=== PATIENT | female | born 1965 | race Caucasian/White ===

== ENCOUNTER 2021-04-23 22:12 | Inpatient (IN) | payer BC ==
[2021-04-23 23:39] LABS: #Eosinphils 0.1 thou/uL (0.0-0.7); #Lymphocytes 2.6 thou/uL (1.20-3.40); #Monocytes 0.6 thou/uL (0.11-0.59); #Neutrophils 4.9 thou/uL (1.40-6.50); %Basophils 0.4 % (0.0-1.0); %Eosinophils 1.6 % (0.0-10.0); %Lymphocytes 31.7 % (21.0-51.0); %Monocytes 6.7 % (0.0-10.0); %Neutrophils 59.6 % (42.0-75.0); Hemoglobin 12.6 g/dL (12.0-16.0); Mean Corpuscular Volume 88.3 fL (78.0-98.0); Mean Platelet Volume 5.7 fL (7.4-10.4); Platelet Count 488 thou/uL (130-400); RBC Distribution Width 11.5 % (11.5-14.5); Red Blood Cell (RBC) Count 4.19 mill/uL (4.20-5.40); White Blood Cell (WBC) Count 8.3 thou/uL (4.8-10.8)
[2021-04-23] MEDS ORDERED: Piperacillin/Tazobactam 3.375 GM VIAL ONE (23:50)
[2021-04-23] MEDS ORDERED: Morphine 4 MG/ML VIAL ONE (23:50)
[2021-04-24 00:02] LABS: ALT (SGPT) 9 U/L (8-55); AST (SGOT) 8 U/L (5-34); Albumin 3.5 g/dL (3.5-5.0); Alkaline Phosphatase 81 U/L (40-110); Anion Gap 11 mmol/L (10-20); BUN (Urea Nitrogen) 11 mg/dL (9.8-20.1); Bilirubin, Total 0.6 mg/dL (0.2-1.2); Calc. Creatinine Clearance 0 mL/min (70-130); Calcium 9.6 mg/dL (7.8-10.44); Carbon Dioxide 26 mmol/L (22-29); Chloride 99 mmol/L (98-107); Globulin 3.4 g/dL (2.4-3.5); Glucose 193 mg/dL (70-105); Potassium 3.6 mmol/L (3.5-5.1); Protein, Total 6.9 g/dL (6.0-8.3); Sodium 132 mmol/L (136-145)
[2021-04-24 01:41] VITALS: BMI 29.6
[2021-04-24] MEDS ORDERED: Vancomycin 1 GM in Premix Bag 1 BAG IVPB SCH (04:00)
[2021-04-24] MEDS ORDERED: Piperacillin/Tazobactam 3.375 GM in Sodium Chloride 0.9% 100 ML IVPB SCH (04:00)
[2021-04-24] MEDS ORDERED: Sodium Chloride 0.9% 1,000 ML IV SCH (04:00)
[2021-04-24] MEDS: Morphine 4 MG/ML VIAL SLOW IVP PRN ×2 (05:39→08:38)
[2021-04-24] MEDS ORDERED: hydrALAZINE 20 MG/ML VIAL SLOW IVP PRN (08:57)
[2021-04-24] MEDS ORDERED: Ondansetron PF 4 MG/2 ML Vial IVP PRN (08:57)
[2021-04-24] MEDS ORDERED: Ondansetron ODT 4 MG TAB PO PRN (08:57)
[2021-04-24] MEDS ORDERED: Dextrose 5% in Water 1,000 ML IV PRN (08:57)
[2021-04-24] MEDS ORDERED: Dextrose 50% Abboject 50 ML SYRINGE SLOW IVP PRN (08:57)
[2021-04-24] MEDS: Famotidine 20 MG TAB PO SCH ×2 (09:56→20:03)
[2021-04-24] MEDS ORDERED: Vancomycin HCl 1 GM in Sodium Chloride 0.9% 250 ML 250 ML IVPB SCH (11:00)
[2021-04-24] MEDS: Sodium Chloride 0.9% 1,000 ML IV SCH ×2 (11:22→19:00)
[2021-04-24] MEDS: Vancomycin 1 GM in Premix Bag 1 BAG IVPB SCH ×2 (11:28→22:36)
[2021-04-24] MEDS: Acetaminophen 500 MG TAB PO PRN ×2 (11:28→18:11)
[2021-04-24] MEDS: HumaLOG 300 UNITS/3 ML VIAL SC PRN ×3 (11:46→21:39)
[2021-04-24] MEDS: Piperacillin/Tazobactam 3.375 GM in Sodium Chloride 0.9% 100 ML IVPB SCH ×2 (15:29→23:48)
[2021-04-25] MEDS: Acetaminophen 500 MG TAB PO PRN ×3 (03:08→16:13)
[2021-04-25 05:53] LABS: #Basophils 0.1 thou/uL (0.0-0.2); #Eosinphils 0.2 thou/uL (0.0-0.7); #Monocytes 0.8 thou/uL (0.11-0.59); #Neutrophils 6.7 thou/uL (1.40-6.50); %Basophils 0.6 % (0.0-1.0); %Eosinophils 1.9 % (0.0-10.0); %Lymphocytes 20.5 % (21.0-51.0); %Monocytes 8.2 % (0.0-10.0); %Neutrophils 68.8 % (42.0-75.0); Hemoglobin 12.9 g/dL (12.0-16.0); Mean Corpuscular HGB CONC 33.2 g/dL (32.0-36.0); Mean Corpuscular Hemoglobin 29.4 pg (27.0-31.0); Mean Corpuscular Volume 88.7 fL (78.0-98.0); Mean Platelet Volume 5.8 fL (7.4-10.4); Platelet Count 497 thou/uL (130-400); RBC Distribution Width 11.3 % (11.5-14.5); Red Blood Cell (RBC) Count 4.38 mill/uL (4.20-5.40); White Blood Cell (WBC) Count 9.8 thou/uL (4.8-10.8)
[2021-04-25] MEDS: HumaLOG 300 UNITS/3 ML VIAL SC PRN ×2 (05:57→21:55)
[2021-04-25 05:59] LABS: Hemoglobin A1c 9.1 % (4.0-6.0)
[2021-04-25 05:59] LABS: SARS-CoV-2 NAA Rapid Test Not Detected (NotDetected)
[2021-04-25] MEDS: Sodium Chloride 0.9% 1,000 ML IV SCH ×2 (05:59→16:03)
[2021-04-25 06:22] LABS: Anion Gap 13 mmol/L (10-20); BUN (Urea Nitrogen) 10 mg/dL (9.8-20.1); Calc. Creatinine Clearance 116 mL/min (70-130); Calcium 9.6 mg/dL (7.8-10.44); Carbon Dioxide 24 mmol/L (22-29); Chloride 102 mmol/L (98-107); Glucose 251 mg/dL (70-105); Potassium 3.8 mmol/L (3.5-5.1); Sodium 135 mmol/L (136-145)
[2021-04-25] MEDS: Famotidine 20 MG TAB PO SCH ×2 (09:09→19:57)
[2021-04-25] MEDS: Piperacillin/Tazobactam 3.375 GM in Sodium Chloride 0.9% 100 ML IVPB SCH ×3 (09:09→23:35)
[2021-04-25 10:38] LABS: Vancomycin, Trough 12.7 ug/mL
[2021-04-25] MEDS: Vancomycin 1 GM in Premix Bag 1 BAG IVPB SCH ×3 (11:22→22:08)
[2021-04-25] MEDS ORDERED: Vancomycin 1 GM/200 ML BAG ONE (11:37)
[2021-04-25] MEDS ORDERED: Sodium Chloride 0.9% 100 ML ONE (14:09)
[2021-04-25] MEDS ORDERED: Piperacillin/Tazobactam 3.375 GM VIAL ONE (14:09)
[2021-04-25] MEDS ORDERED: Ondansetron PF 4 MG/2 ML Vial ONE (14:34)
[2021-04-25] MEDS ORDERED: Lidocaine 1% PF 5 ML VIAL ONE (14:34)
[2021-04-25] MEDS ORDERED: Dexamethasone 20 MG/5 ML VIAL ONE (14:34)
[2021-04-25] MEDS ORDERED: PROPOFOL 200 MG/20 ML VIAL ONE (14:34)
[2021-04-25] MEDS ORDERED: ePHEDrine 50 MG/ML VIAL ONE (14:34)
[2021-04-25] MEDS ORDERED: Fentanyl 100 MCG/2 ML VIAL ONE (14:41)
[2021-04-25] MEDS ORDERED: Promethazine HCl 25 MG/ML VIAL IVPB PRN (15:22)
[2021-04-25] MEDS ORDERED: Ondansetron HCl/PF 4 MG/2 ML Vial IVP PRN (15:22)
[2021-04-25] MEDS ORDERED: Morphine 4 MG/ML VIAL SLOW IVP SCH (17:30)
[2021-04-25] MEDS: Morphine 4 MG/ML VIAL SLOW IVP PRN (22:08)
[2021-04-26] MEDS: Morphine 4 MG/ML VIAL SLOW IVP PRN ×4 (02:22→21:26)
[2021-04-26 05:10] LABS: #Basophils 0.2 thou/uL (0.0-0.2); #Lymphocytes 1.6 thou/uL (1.20-3.40); #Monocytes 0.5 thou/uL (0.11-0.59); %Basophils 2.7 % (0.0-1.0); %Eosinophils 0.1 % (0.0-10.0); %Lymphocytes 17.1 % (21.0-51.0); %Monocytes 5.3 % (0.0-10.0); %Neutrophils 74.9 % (42.0-75.0); Hemoglobin 11.3 g/dL (12.0-16.0); Mean Corpuscular Volume 88.4 fL (78.0-98.0); Mean Platelet Volume 5.7 fL (7.4-10.4); Platelet Count 500 thou/uL (130-400); RBC Distribution Width 11.4 % (11.5-14.5); Red Blood Cell (RBC) Count 3.75 mill/uL (4.20-5.40); White Blood Cell (WBC) Count 9.4 thou/uL (4.8-10.8)
[2021-04-26 05:32] LABS: Anion Gap 12 mmol/L (10-20); BUN (Urea Nitrogen) 12 mg/dL (9.8-20.1); Calc. Creatinine Clearance 104 mL/min (70-130); Calcium 9.1 mg/dL (7.8-10.44); Carbon Dioxide 27 mmol/L (22-29); Chloride 98 mmol/L (98-107); Glucose 313 mg/dL (70-105); Potassium 4.3 mmol/L (3.5-5.1); Sodium 133 mmol/L (136-145)
[2021-04-26] MEDS: HumaLOG 300 UNITS/3 ML VIAL SC PRN ×3 (06:46→18:00)
[2021-04-26] MEDS: Piperacillin/Tazobactam 3.375 GM in Sodium Chloride 0.9% 100 ML IVPB SCH (08:24)
[2021-04-26] MEDS: Famotidine 20 MG TAB PO SCH ×2 (08:54→20:04)
[2021-04-26] MEDS: Lantus 1000 UNITS/10 ML VIAL SC SCH (11:30)
[2021-04-26] MEDS: Vancomycin 1 GM in Premix Bag 1 BAG IVPB SCH ×2 (11:30→23:14)
[2021-04-26] MEDS ORDERED: Lisinopril 5 MG TAB PO SCH (17:15)
[2021-04-26] MEDS: metFORMIN 500 MG TAB PO SCH (17:58)
[2021-04-26] MEDS: Acetaminophen 500 MG TAB PO PRN (20:04)
[2021-04-26] MEDS: Amoxicillin/Potassium Clav 500 MG TAB PO SCH (20:04)
[2021-04-27 04:41] LABS: Hemoglobin 10.8 g/dL (12.0-16.0)
[2021-04-27] MEDS: HumaLOG 300 UNITS/3 ML VIAL SC PRN ×2 (06:42→11:56)
[2021-04-27] MEDS ORDERED: Lisinopril 5 MG TAB PO SCH (09:00)
[2021-04-27] MEDS: Amoxicillin/Potassium Clav 500 MG TAB PO SCH (09:25)
[2021-04-27] MEDS: Famotidine 20 MG TAB PO SCH (09:25)
[2021-04-27] MEDS: metFORMIN 500 MG TAB PO SCH (09:25)
[2021-04-27] MEDS: Lantus 1000 UNITS/10 ML VIAL SC SCH (09:26)
[2021-04-27] MEDS: Morphine 4 MG/ML VIAL SLOW IVP PRN (09:27)
[2021-04-27 12:33] VITALS: BP 150/68; TEMP 97.8
== END 2021-04-27 17:10 | disposition home health service (06) | DRG 617 ==
LOC: ERS 22:12 → SURG A 04-24 00:10
PROVIDERS: ADMIT Internal Medicine; ATTEND Family Medicine
PROC: 0Y6T0Z1 Detachment at Right 3rd Toe, High, Open Approach (ICD-10-PCS; principal; 2021-04-25)
PROC: 0Y6P0Z1 Detachment at Right 1st Toe, High, Open Approach (ICD-10-PCS; 2021-04-25)
DX: E11.69 Type 2 diabetes mellitus with other specified complication (principal); M86.8X7 Other osteomyelitis, ankle and foot; E87.1 Hypo-osmolality and hyponatremia; L03.115 Cellulitis of right lower limb; E11.621 Type 2 diabetes mellitus with foot ulcer; E11.65 Type 2 diabetes mellitus with hyperglycemia; L97.519 Non-pressure chronic ulcer of other part of right foot with unspecified severity; I10 Essential (primary) hypertension; I25.10 Atherosclerotic heart disease of native coronary artery without angina pectoris; E11.40 Type 2 diabetes mellitus with diabetic neuropathy, unspecified; E78.5 Hyperlipidemia, unspecified; F17.210 Nicotine dependence, cigarettes, uncomplicated; E66.9 Obesity, unspecified; Z68.29 Body mass index [BMI] 29.0-29.9, adult; I25.2 Old myocardial infarction; Z90.710 Acquired absence of both cervix and uterus; Z88.8 Allergy status to other drugs, medicaments and biological substances; Z79.84 Long term (current) use of oral hypoglycemic drugs
CPT/HCPCS: 36415; 36416; 80048; 80053; 80202; 83036; 83605; 85014; 85018; 85025; 85652; 86140; 87040; 88305; 88311; 93005; 96365; 96375; J0360; J1100; J1815; J2270; J2405; J2543; J2704; J3010; J3370; J3490; J7050; U0002